=== PATIENT | female | born 1960 | race Caucasian/White ===

== ENCOUNTER → 2017-01-12 | Outpatient (CLI) | payer BC ==
[~2017-01-12] MED LIST: CIPR500T4; LAMO100T69; LAMO150T3; LEVO112T2; LISI-552; LISI20TA; MED FOR THYROID
--- NOTE | 2017-01-12 18:23 | Diagnostic Imaging Report ---
INDICATION: Chronic neck and back pain. FINDINGS: There is grade 1 spondylolisthesis of L4 anterior on L5. Body height is well maintained. There is narrowing of the disc space at L4-L5. Facets show no evidence of pars defects. There is sclerosis of the facets in the lower lumbar region. Pedicles are intact. SI joints are symmetrical with moderate sclerosis. IMPRESSION: 1. Grade 1 spondylolisthesis of L4 anterior on L5 with narrowing of the disc space. No evidence of pars defects. 2. These findings are essentially unchanged since 06/25/2015. Dictated by: Dictated on workstation # [id number]
--- NOTE | 2017-01-12 19:17 | Diagnostic Imaging Report ---
EXAMINATION: AP, lateral, and open-mouth views of the cervical spine. INDICATION: Neck pain. FINDINGS: There is straightening of the lordotic curvature. The vertebral body heights are preserved. There is mild disc height loss at the C5-6 and C6-7 levels. Anterior osteophytes are also noted at these levels. There are minimal posterior osteophytes also suggested at these levels. There is no widening of the predental space. Alignment at the lateral masses of C1 and C2 appears satisfactory. The prevertebral soft tissues appear unremarkable. IMPRESSION: Disc degenerative changes at C5-6 and C6-7 levels with suggestion of minimal posterior osteophytes. Dictated by: Dictated on workstation # [id number]
--- NOTE | 2017-01-12 19:21 | Diagnostic Imaging Report ---
AP and lateral views of the thoracic spine. INDICATION: Back pain. FINDINGS: The vertebral body heights are preserved. There is satisfactory alignment of the posterior spinal line. Multilevel disc height loss, disc desiccation and anterior osteophytes seen. The paravertebral soft tissues appear unremarkable. IMPRESSION: Disc degenerative changes. Dictated by: Dictated on workstation # [id number]
== END ==
LOC: RAD 15:43
PROVIDERS: ATTEND Family Medicine
DX: M54.2 Cervicalgia (principal); M54.5 Low back pain; M54.6 Pain in thoracic spine
CPT/HCPCS: 72040; 72072; 72100

== ENCOUNTER → 2017-01-19 | Outpatient (CLI) | payer BC ==
--- NOTE | 2017-01-19 15:37 | Diagnostic Imaging Report ---
PROCEDURE: MRI lumbar spine. TECHNIQUE: Multiplanar, multisequence MRI of the lumbar spine was performed without contrast. INDICATION: Back pain. FINDINGS: There is satisfactory alignment of the lumbar spine. The vertebral body heights are preserved. There is disc desiccation at L3/4 and L4/5 levels. At L4/5, there is moderate disc height loss. There is no suspicious lesion in the bone marrow identified. There is prominent lower lumbar spine facet arthropathy, particularly prominent at the L4/5 level and is worse on the left side with an effusion and posteriorly projecting synovial cysts. The cauda equina and conus medullaris appear grossly unremarkable. T11/12: There is a mild disc bulge with no spinal canal or foraminal stenosis. T12/L1: Minimal disc bulge is seen without spinal canal or foraminal stenosis. L1/2: There is no disc herniation. There is slight facet arthropathy. No central canal, lateral recess, or foraminal stenosis. The conus medullaris terminates at lower L1 level. L2/3: There is a mild disc bulge and xzbt-ce-mshtzubs facet arthropathy with no central canal or lateral recess stenosis. There is no foramina narrowing on either side. L3/4: There is a mild disc bulge and moderate facet arthropathy. No central canal stenosis. There is bilateral mild narrowing of the lateral recess. The foramina demonstrate bilateral mild stenosis. L4/5: There is a mild disc bulge with no significant central canal stenosis. There is xkhdordx-oy-qslqnh facet arthropathy bilaterally. There is bilateral lateral recess stenosis of mlqd-ic-jgifufnp degree bilaterally, more prominent on the right side abutting the descending L5 nerve roots. The foramina demonstrate mild narrowing bilaterally. L5/S1: There is no significant disc bulge. There is mild facet and ligamentous hypertrophy. No central canal, lateral recess, or foraminal stenosis seen. IMPRESSION: Lower lumbar spine prominent facet arthropathy, particularly at L4/5 level. There are also kqjl-uu-xvjjualc disc degenerative changes with no central canal stenosis at any level. Qfhw-ab-qocwkhua lateral recess stenosis is seen bilaterally at L4/5. Dictated by: Dictated on workstation # [id number]
== END ==
LOC: RAD 13:54
PROVIDERS: ATTEND Family Medicine
DX: M48.06 Spinal stenosis, lumbar region (principal)
CPT/HCPCS: 72148

== ENCOUNTER → 2017-03-17 | Outpatient (CLI) | payer BC ==
--- NOTE | 2017-03-17 18:52 | Diagnostic Imaging Report ---
Bilateral diagnostic mammogram. INDICATION: Followup medial right breast asymmetry and left breast pain. COMPARISON: 08/15/16 and other prior exams. The current study was also evaluated with a Computer Aided Detection (CAD) system. FINDINGS: The breasts are composed of heterogeneously dense parenchyma which may decrease mammographic sensitivity. The medial right breast asymmetry is not significantly changed from the previous studies. This is likely related to summation artifact of parenchyma. No definite associated correlating abnormality on the right MLO view. The left breast appears stable with particularly dense parenchyma in the upper outer aspect. IMPRESSION: No mammographic evidence of malignancy. Ultrasound evaluation of the area of pain in the left breast is pending. ACR BI-RADS Category 0: Incomplete. (Needs additional imaging evaluation). Result letter will be mailed to the patient. Note: At least 10% of breast cancer is not imaged by mammography. Dictated by: Dictated on workstation # [id number]
--- NOTE | 2017-03-17 18:54 | Diagnostic Imaging Report ---
EXAMINATION: Left breast ultrasound. INDICATION: Left breast pain. FINDINGS: The patient has pain in the upper outer quadrant of the left breast which was scanned with no underlying abnormality seen. IMPRESSION: Negative study. Clinical followup of area of pain is recommended. ACR BI-RADS Category 1: Negative. Result letter will be mailed to the patient. Note: At least 10% of breast cancer is not imaged by mammography. Dictated by: Dictated on workstation # [id number]
== END | disposition home or self-care (01) ==
LOC: RAD 08:15
PROVIDERS: ATTEND Family Medicine
DX: N64.89 Other specified disorders of breast (principal)
CPT/HCPCS: 76642; 77066

== ENCOUNTER 2017-03-24 15:15 | Outpatient (RCR) | payer BC | END 2017-03-24 16:18 | disposition home or self-care (01) | PROVIDERS: ATTEND Family Medicine | DX: M54.5 Low back pain (principal); I10 Essential (primary) hypertension; E03.9 Hypothyroidism, unspecified ==

== ENCOUNTER → 2017-04-05 | Outpatient (CLI) | payer BC ==
--- NOTE | 2017-04-05 18:10 | Diagnostic Imaging Report ---
Transabdominal and transvaginal pelvic ultrasound. INDICATION: Right pelvic pain. FINDINGS: The urinary bladder appears unremarkable. The uterus is 5.1 x 3.9 x 2.5 cm in size. There is a uterine fibroid anteriorly in the body of the uterus measuring 1.1 x 0.9 x 1.1 cm in size. Another fibroid is seen measuring 1.7 x 1.2 x 1 cm posteriorly with calcifications seen at the level of the body of the uterus. This appears to have a subserosal component bulging posteriorly. There is no fibroid identified on this exam projecting into the endometrium. There is a fundal fibroid with shadowing calcifications also suggested in the fundus measuring 1.1 x 0.7 x 1.2 cm. The endometrial stripe is 3 mm in caliber. There is a tiny amount of fluid seen in the lower uterine segment within the endometrial cavity. The right ovary is obscured by bowel gas. The left ovary demonstrates arterial and venous waveforms and is 2.2 x 1.4 x 2.1 cm. IMPRESSION: Uterine fibroids. The right ovary is not seen. Dictated by: Dictated on workstation # [id number]
== END ==
LOC: RAD 10:01
PROVIDERS: ATTEND Family Medicine
DX: D25.9 Leiomyoma of uterus, unspecified (principal)
CPT/HCPCS: 76830; 76856

== ENCOUNTER 2017-04-27 05:42 | Outpatient (CLI) | payer BC ==
[~2017-04-27] VITALS: Ht 165.1 cm; Wt 65.8 kg
[~2017-04-27 05:42] MED LIST changes: -LAMO150T3; +LAMO150T3 PO; -LISI-552; +LISI-552 PO
[2017-04-27] MEDS ORDERED: LEVO125T6 PO ×2 (12:41)
== END 2017-04-27 12:43 ==
LOC: PREOP 05:42
PROVIDERS: ATTEND Surgery
DX: Z01.818 Encounter for other preprocedural examination (principal); Z12.11 Encounter for screening for malignant neoplasm of colon

== ENCOUNTER 2017-05-01 07:19 | Day surgery (SDC) | payer BC ==
[~2017-05-01] VITALS: Ht 165.1 cm; Wt 65.8 kg
[~2017-05-01 07:19] MED LIST changes: +LEVO125T6 PO
[2017-05-01] MEDS: fentaNYL INJECTION 100 MCG/2 ML AMP IVP PRN ×3 (07:37→08:45)
[2017-05-01 07:39] VITALS: BP 123/72
[2017-05-01] MEDS ORDERED: NS IV 500 ML 500 ML IV PRN (07:45)
--- NOTE | 2017-05-01 08:11 | History & Physicial ---
History of Present Illness History of Present Illness Reason for visit/HPI to undergo screening colonoscopy. Previous history of polyps. Paternal uncle with colon cancer Date of Admission Date Seen by Provider: May 01, 2017 Time Seen by Provider: 08:09 I consulted on this patient on 05/01/17 08:09 Attending Physician Andrei Villaseñor MD Admitting Physician Jessica Benson DO Consult Allergies and Home Medications Allergies Coded Allergies: No Known Drug Allergies (Unverified , 02/09/10) Home Medications Lamotrigine 150 Mg Tablet, 150 MG PO BID, (Reported) Levothyroxine Sodium 125 Mcg Tablet, 125 MCG PO DAILY, (Reported) Lisinopril 20 Mg Tablet, 20 MG PO DAILY, (Reported) Past Gxyendt-Ddyggl-Pyjhoc Hx Patient Social History Marrital Status: Employed/Student: employed Alcohol Use: Rarely Uses Recreational Drug Use: No Smoking Status: Never a Smoker Recent Foreign Travel: No Contact w/other who traveled: No Recent Hopitalizations: No Recent Infectious Disease Expo: No Seasonal Allergies Seasonal Allergies: No Surgeries HX Surgeries: Yes Surgeries: Adenoidectomy, Appendectomy, Breast, Tonsillectomy Respiratory Hx Respiratory Disorders: No Cardiovascular Hx Cardiovascular Disorders: Yes (murmur heard at times) Cardiac Disorders: Heart Murmur, Hypertension Neurological Hx Neurological Disorders: Yes Neurological Disorders: Seizure Disorder Reproductive System Hx Reproductive Disorders: No Sexually Transmitted Disease: No Genitourinary Hx Genitourinary Disorders: No Gastrointestinal Hx Gastrointestinal Disorders: No Musculoskeletal Hx Musculoskeletal Disorders: Yes Musculoskeletal Disorders: Chronic Back Pain Endocrine Hx Endocrine Disorders: Yes Endocrine Disorders: Hypothyroidsim HEENT HX ENT Disorders: No Cancer Hx Cancer: No Psychosocial Hx Psychiatric Problems: No Integumentary HX Skin/Integumentary Disorder: No Blood Transfusions Hx Blood Disorders: No Constitutional: no symptoms reported EENTM: no symptoms reported Respiratory: no symptoms reported Cardiovascular: no symptoms reported Gastrointestinal: no symptoms reported Genitourinary: no symptoms reported Musculoskeletal: no symptoms reported Skin: no symptoms reported Psychiatric/Neurological: No Symptoms Reported Physical Exam Vital Signs Vital Sign - Last 12Hours 05/01/17 07:39 Temp 99.5 Pulse 86 Resp 16 B/P (MAP) 123/72 Pulse Ox 97 O2 Delivery Room Air Capillary Refill : General Appearance: No Apparent Distress HEENT: Normal ENT Inspection Neck: Normal Inspection Respiratory: Lungs Clear Cardiovascular: Regular Rate, Rhythm Gastrointestinal: Non Tender, Soft Rectal: Deferred Extremity: Normal Inspection Neurologic/Psychiatric: Alert, Oriented x3 Skin: Normal Color, Warm/Dry Assessment/Plan Assessment and Plan lady with a personal history of polyps. Family should colon cancer. Details of colonoscopy, polypectomy, iatrogenic complications of perforation and bleeding discussed. Seems to be in agreement to proceed. Problems: ANDREI VILLASEÑOR MD May 01, 2017 8:10 am
--- NOTE | 2017-05-01 08:11 | Conscious Sedation/ASA ---
Conscious Sedation Pre-Proced Time Reviewed: 08:11 ASA Class: 2 Airway Mallampati Classification: ([place] appropriate class) I. II. III, IV Lungs Heart ASA score ASA 1: a normal healthy patient ASA 2: a patient with a mild systemic disease (mid diabetes, controlled hypertension, obesity ASA 3: a patient with a severe systemic disease that limits activity (angina , COPD, prior Myocardial infarction) ASA 4: a patient with an incapacitating disease that is a constant threat to life (CHF, renal failure) ASA 5: a moribund patient not expected to survive 24 hrs. (ruptured aneurysm) ASA 6: a declared brain patient whose organs are being harvested. For emergent operations, add the letter E after the classification Grade 1 Sedation Plan: Discussed options with patient/fam Note The patient is an appropriate candidate to undergo the planned procedure, sedation, and anesthesia. The patient immediately re-assessed prior to indication. ANDREI GASPAR MD May 01, 2017 8:11 am
[2017-05-01] MEDS ORDERED: fentaNYL INJECTION 100 MCG/2 ML AMP ONE ×2 (08:22)
[2017-05-01] MEDS ORDERED: MIDAZOLAM 2 MG/2 ML (VERSED) VIAL ONE ×4 (08:22→08:31)
[2017-05-01] MEDS: MIDAZOLAM 2 MG/2 ML (VERSED) VIAL IVP PRN ×4 (08:35→08:47)
--- NOTE | 2017-05-01 08:59 | Endo Procedure Record ---
Endo Procedure Report Date of Procedure May 01, 2017 Surgeon (s) ANDREI GASPAR MD Post Procedure/Op Diagnosis normal colonoscopy Procedure Performed colonoscopy to cecum Description of Procedure Anesthesia Type: Conscious Sedation Specimen(s) collected/removed none Description of the Procedure INDICATION FOR PROCEDURE: This lady came in for screening colonoscopy. She has a personal history of a very small polyp at the cecum and the family history of colon cancer in her paternal uncle. Informed consent was obtained after reviewing the procedure and complications of iatrogenic perforation and post polypectomy bleeding. dESCRIPTION OF PROCEDURE: She was placed in left lateral decubitus position and her vital signs were monitored. Conscious sedation was achieved using Versed and fentanyl. Digital rectal examination was unremarkable. The colonoscope was then introduced in the rectum and advanced all the way up to the cecum. The scope was then withdrawn slowly and the mucosa examined in a systematic fashion. There was no abnormality. She tolerated the procedure well and was taken back to the nursing area in a stable condition Impression: Normal screening colonoscopy. Positive family history. Recommend repeating in 5 years. Copies To: MARIALUISA BOATENG XAVIER M MD May 01, 2017 8:59 am
--- NOTE | 2017-05-01 09:00 | Discharge Inst-Simple/Standard ---
Discharge Inst-Standard Discharge Medications New, Converted or Re-Newed RX: Other Patient Instructions/Follow Up Plan of Care/Instructions/FU: repeat colonoscopy in 5 years Activity as Tolerated: Yes Discharge Diet: No Restrictions ANDREI GASPAR MD May 01, 2017 8:59 am
[2017-05-01 09:20] VITALS: BP 108/72
[2017-05-01 09:50] VITALS: BP 111/73
[2017-05-01 10:15] VITALS: BP 115/70
== END 2017-05-01 10:15 | disposition home or self-care (01) ==
LOC: ENDO 07:19
PROVIDERS: ATTEND Surgery
DX: Z12.11 Encounter for screening for malignant neoplasm of colon (principal); Z86.010 Personal history of colon polyps; Z80.0 Family history of malignant neoplasm of digestive organs; I10 Essential (primary) hypertension; G40.909 Epilepsy, unspecified, not intractable, without status epilepticus; E03.9 Hypothyroidism, unspecified

== ENCOUNTER → 2017-05-30 | Outpatient (CLI) | payer BC ==
--- NOTE | 2017-05-30 17:35 | Diagnostic Imaging Report ---
EXAMINATION: Pelvis at 11:19 a.m. INDICATION: Hip pain. FINDINGS: A single AP view of the pelvis was obtained. There are no prior studies available for comparison. There is no fracture, dislocation, or acute bony abnormality evident. There is moderate degenerative disease involving the hip and sacroiliac joints. The soft tissues are unremarkable. IMPRESSION: 1. There is no evidence for an acute bony abnormality. 2. If clinical concern regarding an underlying abnormality persists and further imaging is desired, then MRI will be recommended. Dictated by: Dictated on workstation # [id number]
== END ==
LOC: RAD 10:47
PROVIDERS: ATTEND Internal Medicine Rheumatology
DX: M54.5 Low back pain (principal); M46.1 Sacroiliitis, not elsewhere classified
CPT/HCPCS: 72170

== ENCOUNTER → 2018-04-09 | Outpatient (CLI) | payer BC ==
--- NOTE | 2018-04-09 14:04 | Diagnostic Imaging Report ---
INDICATION: Routine screening. COMPARISON: 03/17/2017 and 02/24/2016. TECHNIQUE: 2D and 3D bilateral screening mammography was performed with CAD. FINDINGS: Both breasts remain heterogeneously dense, limiting the sensitivity of mammography. No dominant mass or malignant appearing microcalcifications are seen. The axillae are unremarkable. IMPRESSION: No mammographic features suspicious for malignancy are identified. ACR BI-RADS Category 1: Negative. Result letter will be mailed to the patient. Note: At least 10% of breast cancer is not imaged by mammography. Dictated by: Dictated on workstation # [id number]
== END ==
LOC: RAD 10:38
PROVIDERS: ATTEND Family Medicine
DX: Z12.31 Encounter for screening mammogram for malignant neoplasm of breast (principal)
CPT/HCPCS: 77067

== ENCOUNTER → 2018-08-06 | Outpatient (CLI) | payer BC ==
--- NOTE | 2018-08-06 17:10 | Diagnostic Imaging Report ---
PROCEDURE: US Non-ob pelvis comp/trans. TECHNIQUE: Multiple realtime grayscale images were obtained of the pelvis in various projections endovaginally. Transabdominal imaging was also performed. INDICATION: Uterine fibroids. COMPARISON: Comparison is made with prior pelvic ultrasound from 04/05/2017. FINDINGS: The uterus measures 5.0 x 3.4 x 2.4 cm. The endometrium is 2 mm in thickness. There is an anterior fibroid measuring 1.1 x 0.7 x 1.3 cm. Fundal fibroid measures 1.1 x 0.7 x 1.2 cm. Posterior fundal fibroid is 1.7 x 0.9 x 1.2 cm. Fibroids appear similar to prior. Right ovary measures 1.2 x 2.3 x 1.8 cm and the left ovary measures 1.3 x 2.0 x 1.7 cm. No adnexal mass or free fluid is seen. IMPRESSION: Uterine fibroids, similar in appearance to the examination from 04/05/2017. Dictated by: Dictated on workstation # [id number]
--- NOTE | 2018-08-06 17:55 | Diagnostic Imaging Report ---
PROCEDURE: US Thyroid. TECHNIQUE: Multiple real-time grayscale images were obtained of the thyroid in various projections. INDICATION: Hypothyroidism. FINDINGS: The right lobe of the thyroid measures 2.4 x 1.3 x 0.7 cm and the left lobe measures 1.9 x 1.0 x 1.1 cm. Both lobes are heterogeneous in echotexture. No discrete thyroid mass is detected. Isthmus is 2 mm in thickness. IMPRESSION: Small, heterogeneous thyroid. No discrete thyroid mass is detected. Dictated by: Dictated on workstation # [id number]
== END ==
LOC: RAD 13:46
PROVIDERS: ATTEND Family Medicine
DX: E03.9 Hypothyroidism, unspecified (principal); D25.9 Leiomyoma of uterus, unspecified
CPT/HCPCS: 76536; 76830; 76856

== ENCOUNTER 2018-08-14 13:30 | Outpatient (CLI) | payer BC ==
[~2018-08-14] VITALS: Ht 165.1 cm; Wt 65.8 kg
== END 2018-08-14 14:15 | disposition home or self-care (01) ==
LOC: PREOP 13:30
PROVIDERS: ATTEND Surgery
DX: Z01.818 Encounter for other preprocedural examination (principal)

== ENCOUNTER 2018-08-20 07:02 | Day surgery (SDC) | payer BC ==
[~2018-08-20] VITALS: Ht 165.1 cm; Wt 65.8 kg
[2018-08-20] MEDS ORDERED: NS IV 500 ML 500 ML IV PRN (07:16)
--- OUTSIDE RECORDS SUMMARY | 2018-08-20 07:19 | XMS REPORT | Clinical Summary ---
Author Author [facility] Organization [facility] Address Unknown Phone Unavailable Care Team Providers Care Reach Truck Operator Name Role Phone Self, Referral PCP Unavailable Source Comments Some departments are not documenting in the electronic medical record. If you do not see the information that you expected, contact Release of Information in the Health Information Management department at [phone] for further assistance in locating additional records.[facility] Allergies Not on File Current Medications Not on file Active Problems Not on file Social History Tobacco Use Types Packs/Day Years Used Date Never Assessed Sex Assigned at Date Recorded Not on file Last Filed Vital Signs Not on file Plan of Treatment Health Maintenance Due Date Last Done Comments HEPATITIS C SCREENING 1962 PHYSICAL (COMPREHENSIVE) 1969 EXAM PERTUSSIS VACCINE 1973 HIV SCREENING 1977 TETANUS VACCINE 12/26/1979 CERVICAL CANCER SCREENING 1992 BREAST CANCER SCREENING 2002 COLORECTAL CANCER 2012 SCREENING SHINGLES RECOMBINANT 2012 VACCINE (1 of 2) INFLUENZA VACCINE 05/09/2018 Results Not on filefrom Last 3 Months
--- OUTSIDE RECORDS SUMMARY | 2018-08-20 07:20 | XMS REPORT | Continuity of Care Document ---
Demographics x Preferred Language Unknown Marital Status Unknown Rastafari Affiliation Unknown Race Unknown Ethnic Group Unknown Author Author [facility] Organization [facility] Address Unknown Phone Unavailable Allergies Active Description Code Type Severity Reaction Onset Reported/Identified Relationship to Patient Clinical Status Yes No known drug allergies [id number] ND N/A N/A Confirmed or Verified Yes No Known Drug Allergies [id number] Drug Allergy Mild N/A 05/01/2017 Medications There is no data. Problems Date Dx Coded Attending Type Code Diagnosis Diagnosed By 08/06/2011 Ot 345.90 EPILEPSY UNSPEC W/O MENTION INTRACTABLE 08/06/2011 Ot V58.69 OTH MED,LT, CURRENT USE 08/26/2014 Ot V76.12 08/26/2014 Ot V76.12 08/26/2014 Ot 433.10 08/26/2014 Ot 780.50 08/26/2014 Ot 228.09 08/26/2014 Ot 789.01 08/26/2014 Ot V76.12 08/26/2014 Ot V76.12 08/26/2014 OPHELIA BOATENG DOLINE S Ot V76.12 02/05/2015 Ot V76.12 02/05/2015 Ot 433.10 02/05/2015 Ot 780.50 02/05/2015 Ot 228.09 02/05/2015 Ot 789.01 02/05/2015 Ot V76.12 02/05/2015 Ot V76.12 02/05/2015 OPHELIA BOATENG DOLINE S Ot V76.12 02/05/2015 CELESTINENDSURINDER DOGALAJESSICA S Ot 789.01 02/06/2015 CELESTINENDSURINDER DOGALAJESSICA S Ot 789.01 02/08/2015 GALA BOATENG DOQUELINE S Ot 789.00 02/10/2015 GALA BOATENG DOQUELINE S Ot 789.00 02/10/2015 AGNIESZKA FRANCO RESEARCH DIRECTOR Ot V76.12 03/07/2015 OPHELIA BOATENG DOLINE S Ot 789.00 03/07/2015 AGNIESZKA FRANCO RESEARCH DIRECTOR Ot V76.12 03/27/2015 ORENDER DO, JESSICA S Ot 789.01 06/23/2015 CABRERA TORREZ ECDIS N NAVIGATION OPERATOR Ot 244.9 HYPOTHYROIDISM NOS 06/23/2015 CABRERA TORREZ ECDIS N NAVIGATION OPERATOR Ot 345.90 EPILEPSY UNSPEC W/O MENTION INTRACTABLE 06/23/2015 CABRERA TORREZ ECDIS N NAVIGATION OPERATOR Ot 401.9 HYPERTENSION NOS 06/23/2015 CABRERA TORREZ ECDIS N NAVIGATION OPERATOR Ot 728.87 MUSCLE WEAKNESS (GENERALIZED) 06/23/2015 CABRERA TORREZ ECDIS N NAVIGATION OPERATOR Ot 782.0 SKIN SENSATION DISTURB 06/23/2015 CABRERA TORREZ ECDIS N NAVIGATION OPERATOR Ot V58.69 OTH MED,LT,CURRENT USE 07/08/2015 ORENDER DO, JESSICA S Ot 721.0 07/08/2015 ORENDER DO, JESSICA S Ot 721.2 07/08/2015 ORENDER DO, JESSICA S Ot 721.3 07/10/2015 ORENDER DO, JESSICA S Ot 218.9 11/20/2015 Ot 433.10 11/20/2015 Ot 780.50 11/20/2015 Ot 228.09 11/20/2015 Ot 789.01 11/20/2015 Ot V76.12 11/20/2015 Ot V76.12 11/20/2015 ORENDER DO, JESSICA S Ot V76.12 11/20/2015 ORENDER DO, JESSICA S Ot 789.01 11/20/2015 ORENDER DO, JESSICA S Ot 789.00 11/20/2015 AGNIESZKA FRANCO Ot V76.12 11/20/2015 ORENDER DO, JESSICA S Ot 721.0 11/20/2015 ORENDER DO, JESSICA S Ot 721.2 11/20/2015 ORENDER DO, JESSICA S Ot 721.3 11/20/2015 ORENDER DO, JESSICA S Ot 218.9 02/25/2016 ORENDER DO, JESSICA S Ot N64.89 OTHER SPECIFIED DISORDERS OF BREAST 02/25/2016 ORENDER DO, JESSICA S Ot Z12.31 ENCNTR SCREEN MAMMOGRAM FOR MALIGNANT NE 02/25/2016 ORENDER DO, JESSICA S Ot N64.89 OTHER SPECIFIED DISORDERS OF BREAST 02/25/2016 CELESTINENDER , JESSICA S Ot Z12.31 ENCNTR SCREEN MAMMOGRAM FOR MALIGNANT NE 03/01/2016 CELESTINENDSURINDER BEARDEN, JESSICA S Ot N64.59 OTHER SIGNS AND SYMPTOMS IN BREAST 03/09/2016 CELESTINENDER , JESSICA S Ot N64.89 OTHER SPECIFIED DISORDERS OF BREAST 03/09/2016 CELESTINENDER , JESSICA S Ot Z12.31 ENCNTR SCREEN MAMMOGRAM FOR MALIGNANT NE 03/18/2016 CELESTINENDER , JESSICA S Ot N64.59 OTHER SIGNS AND SYMPTOMS IN BREAST 08/15/2016 Ot 228.09 HEMANGIOMA NEC 08/15/2016 Ot 789.01 ABDOMINAL PAIN, RIGHT UPPER QUADRANT 08/15/2016 Ot V76.12 OTH SCREEN MAMMO-MALIGN NEOPLASM OF [place]EN 08/15/2016 Ot V76.12 OTH SCREEN MAMMO-MALIGN NEOPLASM OF [place] 08/15/2016 CELESTINENDOPHELIA CADENA DOLINE S Ot V76.12 OTH SCREEN MAMMO-MALIGN NEOPLASM OF [place] 08/15/2016 CELESTINENDER , JESSICA S Ot 789.01 ABDOMINAL PAIN, RIGHT UPPER QUADRANT 08/15/2016 CELESTINENDER , JESSICA S Ot 789.00 ABDOMINAL PAIN, UNSPECIFIED SITE 08/15/2016 AGNIESZKA FRANCO Ot V76.12 OTH SCREEN MAMMO-MALIGN NEOPLASM OF [place] 08/15/2016 CELESTINENDSURINDER BEARDEN, JESSICA S Ot 721.0 CERVICAL SPONDYLOSIS 08/15/2016 KILO BEARDEN, JESSICA S Ot 721.2 THORACIC SPONDYLOSIS 08/15/2016 CELESTINENDER , JESSICA S Ot 721.3 LUMBOSACRAL SPONDYLOSIS 08/15/2016 CELESTINENDER , JESSICA S Ot 218.9 UTERINE LEIOMYOMA NOS 08/15/2016 MARCELLER , JESSICA S Ot N64.89 OTHER SPECIFIED DISORDERS OF BREAST 08/15/2016 CELESTINENDSURINDER BEARDEN, JESSICA S Ot Z12.31 ENCNTR SCREEN MAMMOGRAM FOR MALIGNANT NE 08/15/2016 CELESTINENDSURINDER BEARDEN, JESSICA S Ot N64.59 OTHER SIGNS AND SYMPTOMS IN BREAST 08/16/2016 CELESTINENDSURINDER BEARDEN, JESSICA S Ot R92.8 OTH ABN AND INCONCLUSIVE FINDINGS ON DX 08/26/2016 ORENDER DO, JESSICA S Ot R92.8 OTH ABN AND INCONCLUSIVE FINDINGS ON DX 02/10/2017 ORENDER DO, JESSICA S Ot E03.9 HYPOTHYROIDISM, UNSPECIFIED 02/10/2017 ORENDER DO, JESSICA S Ot I10 ESSENTIAL (PRIMARY) HYPERTENSION 02/10/2017 ORENDER DO, JESSICA S Ot M54.5 LOW BACK PAIN 02/14/2017 ORENDER DO, JESSICA S Ot E03.9 HYPOTHYROIDISM, UNSPECIFIED 02/14/2017 ORENDER DO, JESSICA S Ot I10 ESSENTIAL (PRIMARY) HYPERTENSION 02/14/2017 ORENDER DO, JESSICA S Ot M54.5 LOW BACK PAIN 02/15/2017 ORENDER DO, JESSICA S Ot M54.2 CERVICALGIA 02/15/2017 ORENDER DO, JESSICA S Ot M54.5 LOW BACK PAIN 02/15/2017 ORENDER DO, JESSICA S Ot M54.6 PAIN IN THORACIC SPINE 02/15/2017 ORENDER DO, JESSICA S Ot M48.06 SPINAL STENOSIS, LUMBAR REGION 03/19/2017 ORENDER DO, JESSICA S Ot N64.89 OTHER SPECIFIED DISORDERS OF BREAST 03/22/2017 ORENDER DO, JESSICA S Ot E03.9 HYPOTHYROIDISM, UNSPECIFIED 03/22/2017 ORENDER DO, JESSICA S Ot I10 ESSENTIAL (PRIMARY) HYPERTENSION 03/22/2017 ORENDER DO, JESSICA S Ot M54.5 LOW BACK PAIN 03/30/2017 ORENDER DO, JESSICA S Ot N64.89 OTHER SPECIFIED DISORDERS OF BREAST 04/06/2017 ORENDER DO, JESSICA S Ot D25.9 LEIOMYOMA OF UTERUS, UNSPECIFIED 04/21/2017 ORENDER DO, JESSICA S Ot D25.9 LEIOMYOMA OF UTERUS, UNSPECIFIED 04/28/2017 HUBERT CARIAS, ANDREI [place] Ot Z01.818 ENCOUNTER FOR OTHER PREPROCEDURAL EXAMIN 04/28/2017 HUBERT CARIAS, ANDREI [place] Ot Z12.11 ENCOUNTER FOR SCREENING FOR MALIGNANT NE 05/01/2017 HUBERT CARIAS, ANDREI [place] Ot E03.9 HYPOTHYROIDISM, UNSPECIFIED 05/01/2017 ANDREI GASPAR MD Ot G40.909 EPILEPSY, UNSP, NOT INTRACTABLE, WITHOUT 05/01/2017 ANDREI GASPAR MD Ot I10 ESSENTIAL (PRIMARY) HYPERTENSION 05/01/2017 ANDREI GASPAR MD Ot Z12.11 ENCOUNTER FOR SCREENING FOR MALIGNANT NE 05/01/2017 ANDREI GASPAR MD Ot Z80.0 FAMILY HISTORY OF MALIGNANT NEOPLASM OF 05/01/2017 ANDREI GASPAR MD Ot Z86.010 PERSONAL HISTORY OF COLONIC POLYPS 05/02/2017 ANDREI GASPAR MD Ot E03.9 HYPOTHYROIDISM, UNSPECIFIED 05/02/2017 ANDREI GASPAR MD Ot G40.909 EPILEPSY, UNSP, NOT INTRACTABLE, WITHOUT 05/02/2017 ANDREI GASPAR MD Ot I10 ESSENTIAL (PRIMARY) HYPERTENSION 05/02/2017 ANDREI GASPAR MD Ot Z12.11 ENCOUNTER FOR SCREENING FOR MALIGNANT NE 05/02/2017 ANDREI GASPAR MD Ot Z80.0 FAMILY HISTORY OF MALIGNANT NEOPLASM OF 05/02/2017 ANDREI GASPAR MD Ot Z86.010 PERSONAL HISTORY OF COLONIC POLYPS 05/31/2017 MATTEO DONOHUE MD Ot M46.1 SACROILIITIS, NOT ELSEWHERE CLASSIFIED 05/31/2017 MATTEO DONOHUE MD Ot M54.5 LOW BACK PAIN 06/13/2017 MATTEO DONOHUE MD Ot M46.1 SACROILIITIS, NOT ELSEWHERE CLASSIFIED 06/13/2017 MATTEO DONOHUE MD Ot M54.5 LOW BACK PAIN 04/10/2018 OPHELIA BOATENG DOLINE S Ot Z12.31 ENCNTR SCREEN MAMMOGRAM FOR MALIGNANT NE 04/15/2018 CELESTINENDSURINDER DOGALAJESSICA S Ot Z12.31 ENCNTR SCREEN MAMMOGRAM FOR MALIGNANT NE 04/25/2018 CELESTINENDER DOGALAJESSICA S Ot Z12.31 ENCNTR SCREEN MAMMOGRAM FOR MALIGNANT NE 08/08/2018 OPHELIA BOATENG DOLINE S Ot D25.9 LEIOMYOMA OF UTERUS, UNSPECIFIED 08/08/2018 OPHELIA BOATENG DOLINE S Ot E03.9 HYPOTHYROIDISM, UNSPECIFIED 08/14/2018 ANDRIE GASPAR MD Ot Z01.818 ENCOUNTER FOR OTHER PREPROCEDURAL EXAMIN 08/15/2018 HUBERT CARIAS, ANDREI [place] Z01.818 ENCOUNTER FOR OTHER PREPROCEDURAL EXAMIN Procedures There is no data. Results Test Result Range UA - 06/21/15 00:00 PH 5.5 4.5-8.0 SG 1.005 UABILI NEGATIVE UABLD NEGATIVE UACOLOR YEL UAGLU NEGATIVE UAKET NEGATIVE UALEUK TRACE UANIT NEGATIVE UAURO 0.2 0-0.2 CLARITY CL PROTEIN NEGATIVE UA WBC R05 UA RBC R05 SQUAMOUS EPITHELIAL CELLS FEW CBC WITH DIFF - 06/21/15 00:00 BASO% 0.8 % 0-2 EOS% 1.3 % 0-7.0 HCT 39.4 % 36.9-47.0 HGB 13.2 G/DL 12.0-16.0 LYMPH% 32.3 % 20-40 MCH 31.4 PG 27-31 MCHC 33.5 G/DL 33-37 MCV 93.6 FL 81-99 MONO% 4.8 % 0-10.0 MPV 9.1 FL 7.3-10.4 NEUTRO% 60.6 % 40-70 PLT 321 10^3u 130-400 RBC 4.2 10^6u 4.2-5.4 RDW 12.9 % 11.5-15.5 WBC 6.3 10^3u 4.8-10.8 NEUTRO# 3.8 10^3u 1.5-7.5 LYMPH# 2.0 10^3u 0.9-4.0 MONO# 0.3 10^3u 0-0.8 EOS# 0.1 10^3u 0-0.6 BASO# 0.1 10^3u 0-0.1 IMM GRANULOCYTE % 0.2 % IMM GRANULOCYTE # 0.0 10^3u 0-5 FREE T4 - 06/21/15 00:00 FT4 1.06 NG/DL 0.78-1.34 TSH - 06/21/15 00:00 TSH 5.44 UIUML 0.36-3.74 CMP - 06/21/15 00:00 ALB 4.0 G/DL 3.5-5 ALP 74 IU/L 25-72 ALT 26 IU/L 12-65 AST 21 IU/L 10-42 BCR 13.3 10-20 BUN 13 MG/DL 7-18 CA 8.9 MG/DL 8.4-10.2 CL 103 MEQ/L 98-107 CO2 29.8 MEQ/L 22-28 CREA 0.98 MG/DL 0.6-1.0 EGFR 60 eGFR >=60 GLU 95 MG/DL 70-105 K 4.2 MEQ/L 3.5-5.1 NA 141 MEQ/L 134-145 OSMSC 281.2 MOSML 280-300 TBIL 0.2 MG/DL 0.1-1.0 TP 7.1 G/DL 6.0-8.3 Albumin/Globulin Ratio 1.3 0-8 Anion Gap 8.2 8-16 LAMO - 06/21/15 00:00 LAMO 5.3 mcg/m 4.0-18.0 Encounters ACCT No. Visit Date/Time Discharge Status Pt. Type Provider Facility Loc./Unit Complaint [id number] 06/21/2015 17:44:00 06/22/2015 16:44:00 DIS Inpatient ROSA M SOTO [facility] OBS [id number] 09/07/2014 00:00:00 Document Registration [id number] 08/14/2018 13:30:00 08/14/2018 14:15:00 DIS Outpatient ANDREI GASPAR MD [facility] PREOP EGD [id number] 08/06/2018 13:46:00 08/06/2018 23:59:59 CLS Outpatient JESSICA BOATENG DO [facility] RAD HYPOTHYROIDISM, UTERINE FIBROID [id number] 04/09/2018 10:38:00 04/09/2018 23:59:59 CLS Outpatient JESSICA BOATENG DO S [facility] RAD SCREENING [id number] 05/30/2017 10:47:00 05/30/2017 23:59:59 CLS Outpatient MATTEO DONOHUE MD [facility] RAD M54.5 [id number] 05/01/2017 07:19:00 05/01/2017 10:15:00 DIS Outpatient ANDREI GASPAR MD [facility] ENDO SCREENING [id number] 04/27/2017 05:42:00 04/27/2017 12:43:00 DIS Outpatient HUBERT CARIAS, ANDREI [place] [facility] PREOP SCREENING COLONOSCOPY [id number] 04/05/2017 10:01:00 04/05/2017 23:59:59 CLS Outpatient CELESTINENDER DO JESSICA S [facility] RAD R ADNEXAL PAIN/ ENLARGEMENT [id number] 03/24/2017 15:15:00 03/24/2017 16:18:00 DIS Outpatient CELESTINENDSURINDER BEARDEN JESSICA S [facility] REHAB LUMBAR DEGENERATIVE DISC DISEASE [id number] 03/17/2017 08:15:00 03/17/2017 23:59:59 CLS Outpatient CELESTINENDSURINDER BEARDEN JESSICA S [facility] RAD RT BREAST ASYMMETRY [id number] 01/19/2017 13:54:00 01/19/2017 23:59:59 CLS Outpatient KILO BEARDEN JESSICA S [facility] RAD DDD,L LEG RADICULOPATHY [id number] 01/12/2017 15:43:00 01/12/2017 23:59:59 CLS Outpatient CELESTINENDSURINDER BEARDEN JESSICA S [facility] RAD CERIVAL THORACIC LUMBAR PAIN [id number] 08/15/2016 12:40:00 08/15/2016 23:59:59 CLS Outpatient CELESTINENDER DO JESSICA S [facility] RAD RT BREAST ASYMMETRY [id number] 02/29/2016 08:04:00 02/29/2016 23:59:59 CLS Outpatient CELESTINENDER DO JESSICA S [facility] RAD R BREAST DENSITY, ASYMMETRY [id number] 02/24/2016 10:39:00 02/24/2016 23:59:59 CLS Outpatient CELESTINENDSURINDER BEARDEN JESSICA S [facility] RAD SCREENING [id number] 07/02/2015 11:48:00 07/02/2015 23:59:59 CLS Outpatient ORENDER DO JESSICA S [facility] RAD PELVIC PAIN [id number] 06/25/2015 10:02:00 06/25/2015 23:59:59 CLS Outpatient ORENDER DO, JESSICA S [facility] RAD NECK PAIN, BACK PAIN [id number] 06/23/2015 11:38:00 06/23/2015 14:02:00 DIS Emergency CABRERA TORREZ Andrews [place] [facility] ER RIGHT SIDE WEAKNESS [id number] 02/05/2015 11:55:00 02/05/2015 23:59:59 CLS Outpatient ORENDER DO, JESSICA S [facility] CARD ABDOMINAL PAIN [id number] 02/05/2015 09:38:00 02/05/2015 23:59:59 CLS Outpatient VANAGNIESZKA LIN RESEARCH DIRECTOR [facility] RAD SCREENING [id number] 01/29/2015 08:30:00 01/29/2015 23:59:59 CLS Outpatient ORENDER DO, JESSICA S [facility] RAD UPPER QUADRANT PAIN [id number] 08/13/2013 09:00:00 08/13/2013 23:59:59 CLS Outpatient ORENDER DO, JESSICA S [facility] RAD ROUTINE [id number] 08/20/2018 07:02:00 ACT Outpatient HUBERT CARIAS, ANDREI [place] [facility] ENDO GERD [id number] 08/26/2014 10:01:00 Document Registration [id number] 07/16/2012 10:03:00 Document Registration [id number] 08/06/2011 04:45:00 Document Registration [id number] 06/23/2011 08:55:00 Document Registration [id number] 06/08/2011 09:25:00 Document Registration [id number] 08/06/2010 19:49:00 Document Registration [id number] 06/29/2010 13:09:00 Document Registration [id number] 05/13/2010 10:58:00 Document Registration [id number] 05/07/2009 08:52:00 Document Registration 11/201707/19/2018 09:36:54 07/19/2018 23:59:59 CLS Outpatient CelestinenderGalaJessica S.
[2018-08-20] MEDS ORDERED: NS IV 500 ML 500 ML ONE (07:26)
[2018-08-20] MEDS ORDERED: MIDAZOLAM 2 MG/2 ML (VERSED) VIAL IVP ONE (07:30)
[2018-08-20] MEDS ORDERED: fentaNYL INJECTION 100 MCG/2 ML AMP IVP ONE (07:30)
[2018-08-20] MEDS ORDERED: HURRICAINE EXT TUBE (BENZOCAINE) XX PRN (07:30)
[2018-08-20 07:38] VITALS: BP 123/45
[2018-08-20] MEDS ORDERED: fentaNYL INJECTION 100 MCG/2 ML AMP ONE (07:54)
[2018-08-20] MEDS ORDERED: MIDAZOLAM 2 MG/2 ML (VERSED) VIAL ONE ×3 (07:54)
[2018-08-20] MEDS ORDERED: HURRICAINE EXT TUBE (BENZOCAINE) ONE (07:54)
--- NOTE | 2018-08-20 08:02 | History & Physicial ---
History of Present Illness History of Present Illness Reason for visit/HPI epigastric pain and heartburn with heme-positive stools. Previous negative colonoscopy and therefore upper endoscopy is reasonable Date of Admission 08/20/18 Date Seen by a Provider: Aug 20, 2018 Time Seen by a Provider: 08:00 I consulted on this patient on 08/20/18 07:59 Attending Physician Andrei Villaseñor MD Admitting Physician Jessica Benson DO Consult Allergies and Home Medications Allergies Coded Allergies: No Known Drug Allergies (Verified , 05/01/17) Home Medications Lamotrigine 150 Mg Tablet, 150 MG PO BID, (Reported) Levothyroxine Sodium 125 Mcg Tablet, 125 MCG PO DAILY, (Reported) Lisinopril 20 Mg Tablet, 20 MG PO DAILY, (Reported) Patient Home Medication List Home Medication List Reviewed: Yes Past Zweobtk-Imqtff-Iikdvq Hx Patient Social History Marrital Status: Employed/Student: employed Recent Foreign Travel: No Contact w/other who traveled: No Recent Hopitalizations: No Recent Infectious Disease Expo: No Immunizations Up To Date Date of Influenza Vaccine: Jul 09, 2018 Seasonal Allergies Seasonal Allergies: No Surgeries Yes Adenoidectomy, Appendectomy, Breast, Tonsillectomy Respiratory No Cardiovascular Yes Heart Murmur, Hypertension Neurological Seizure Disorder Reproductive System Hx Reproductive Disorders: No Sexually Transmitted Disease: No Gastrointestinal Gastroesophageal Reflux Musculoskeletal Chronic Back Pain Endocrine Endocrine Disorders: Hypothyroidsim Review of Systems Constitutional: no symptoms reported EENTM: no symptoms reported Respiratory: no symptoms reported Cardiovascular: no symptoms reported Gastrointestinal: see HPI Musculoskeletal: no symptoms reported Skin: no symptoms reported Psychiatric/Neurological: No Symptoms Reported Physical Exam Vital Signs Vital Signs - First Documented 08/20/18 07:38 Temp 98.1 Pulse 75 Resp 18 B/P (MAP) 123/45 (71) Pulse Ox 95 O2 Delivery Room Air Capillary Refill : Height, Weight, BMI Height: 5'5.00" Weight: 145lbs. 0.0oz. 65.110185hn; 24.1 BMI Method:Stated General Appearance: Anxious Neck: Normal Inspection Respiratory: Lungs Clear Cardiovascular: Regular Rate, Rhythm Gastrointestinal: Non Tender, Soft Extremity: Normal Inspection Neurologic/Psychiatric: Alert, Oriented x3 Skin: Warm/Dry Assessment/Plan Assessment and Plan lady with symptoms of gastroesophageal reflux disease. Heme-positive stools. Esophagitis versus peptic ulcers. For upper endoscopy with antral biopsy for H. pylori Admission Diagnosis Admission Status: Other (Outpt Proc) ANDREI VILLASEÑOR MD Aug 20, 2018 08:02
--- NOTE | 2018-08-20 08:02 | Conscious Sedation/ASA ---
Conscious Sedation Pre-Proced Time 08:02 ASA Score 2 For ASA 3 and 4: Consider anesthesia and medical clearance. Also, for patients with a history of failed moderate sedation consider anesthesia. Airway Lungs Heart ASA score ASA 1: a normal healthy patient ASA 2: a patient with a mild systemic disease (mid diabetes, controlled hypertension, obesity ASA 3: a patient with a severe systemic disease that limits activity (angina , COPD, prior Myocardial infarction) ASA 4: a patient with an incapacitating disease that is a constant threat to life (CHF, renal failure) ASA 5: a moribund patient not expected to survive 24 hrs. (ruptured aneurysm) ASA 6: a declared brain patient whose organs are being harvested. For emergent operations, add the letter E after the classification Mallampati Classification Grade 1 Sedation Plan Discussed options with patient/fam The patient is an appropriate candidate to undergo the planned procedure, sedation, and anesthesia. The patient immediately re-assessed prior to indication. ANDREI GASPAR MD Aug 20, 2018 08:02
--- NOTE | 2018-08-20 08:09 | Endo Procedure Record ---
Endo Procedure Report Date of Procedure Last Colonoscopy: Yes (unsure) Aug 20, 2018 Surgeon (s) ANDREI GASPAR MD Post Procedure/Op Diagnosis hiatal hernia with grade 2 esophagitis 2 mm gastric ulcer along the greater curvature Duodenal erosions Procedure Performed EGD with biopsy of gastric ulcer Description of Procedure Anesthesia Type: Conscious Sedation Specimen(s) collected/removed tissue from gastric ulcers Description of the Procedure Indication for the procedure: This lady came in for an upper endoscopy to evaluate symptoms of gastroesophageal reflux and on the basis of heme-positive stools. Previous colonoscopy was negative. Informed consent was obtained after reviewing the procedure in detail. Description of procedure: She was placed in left lateral decubitus position and her vital signs were monitored. Conscious sedation was achieved using Versed and fentanyl. The flexible gastroscope was introduced down the esophagus, past the stomach, into the proximal duodenum. Findings: Esophagus: Hiatal hernia with grade 2 esophagitis. The changes of esophagitis extended proximally up to about 35 cm from the incisor teeth. Stomach: 2 mm acute ulcer along the greater curvature. Photodocumentation and biopsy for H. pylori were obtained. Duodenum: Changes of duodenitis were found along the first part. There was no jac ulceration. She tolerated the procedure well and was taken back to the nursing area in a stable condition. Impression: Symptoms of gastroesophageal reflux. Grade 2 esophagitis. Gastric ulcer and duodenal erosions. Helicobacter status pending. Copy Copies To 1: MARIALUISA BOATENG XAVIER M MD Aug 20, 2018 08:09
--- NOTE | 2018-08-20 08:15 | Discharge Inst-Simple/Standard ---
Discharge Inst-Standard Discharge Medications New, Converted or Re-Newed RX: Other Patient Instructions/Follow Up Plan of Care/Instructions/FU: please call for Protonix 40 mg daily to her pharmacy ; 30 day supply with 5 refills. To avoid nonsteroidals. Follow-up with Dr. Benson Activity as Tolerated: Yes Discharge Diet: No Restrictions ANDREI GASPAR MD Aug 20, 2018 08:15
[2018-08-20 08:35] VITALS: BP 102/58
[2018-08-20 09:05] VITALS: BP 132/63
[2018-08-20 09:35] VITALS: BP 132/63
== END 2018-08-20 09:35 | disposition home or self-care (01) ==
LOC: ENDO 07:02
PROVIDERS: ATTEND Surgery
DX: K20.9 Esophagitis, unspecified (principal); K44.9 Diaphragmatic hernia without obstruction or gangrene; K25.9 Gastric ulcer, unspecified as acute or chronic, without hemorrhage or perforation; K26.9 Duodenal ulcer, unspecified as acute or chronic, without hemorrhage or perforation; I10 Essential (primary) hypertension; R19.5 Other fecal abnormalities

== ENCOUNTER → 2019-04-18 | Outpatient (CLI) | payer BC ==
--- NOTE | 2019-04-19 13:55 | Diagnostic Imaging Report ---
Indication: Routine screening. Comparison is made with prior mammogram from 04/09/2018 and 03/17/2017. 2-D and 3-D bilateral screening mammography was performed with CAD. Both breasts are heterogeneously dense, limiting the sensitivity of mammography. The parenchymal pattern appears to be stable. No mass or malignant-appearing microcalcifications are seen. The axillae are unremarkable. Impression: BI-RADS category 1 No mammographic features suspicious for malignancy are identified. ACR BI-RADS Category 1: Negative. Result letter will be mailed to the patient. Note: At least 10% of breast cancer is not imaged by mammography. Dictated by: Dictated on workstation # [id number]
== END ==
LOC: RAD 15:50
PROVIDERS: ATTEND Family Medicine
DX: Z12.31 Encounter for screening mammogram for malignant neoplasm of breast (principal)
CPT/HCPCS: 77067

== ENCOUNTER → 2020-04-20 | Outpatient (CLI) | payer BC ==
--- NOTE | 2020-04-20 11:13 | Diagnostic Imaging Report ---
INDICATION: Routine screening. Comparison is made with prior mammogram 04/18/2019 and 04/09/2018. 2-D and 3-D bilateral screening mammography was performed with CAD. Both breasts are heterogeneously dense, limiting the sensitivity of mammography. The parenchymal pattern appears stable. No dominant mass or malignant appearing microcalcifications are seen. Axillae are unremarkable. IMPRESSION: BI-RADS Category 1 No mammographic features suspicious for malignancy are identified. ACR BI-RADS Category 1: Negative. Result letter will be mailed to the patient. Note: At least 10% of breast cancer is not imaged by mammography. Dictated by: Dictated on workstation # [id number]
== END ==
LOC: RAD 10:05
PROVIDERS: ATTEND Family Medicine
DX: Z12.31 Encounter for screening mammogram for malignant neoplasm of breast (principal)
CPT/HCPCS: 77063; 77067

== ENCOUNTER → 2021-05-07 | Outpatient (CLI) | payer BC ==
[~2021-05-07] MED LIST changes: -CIPR500T4; +CIPR500T5; -LISI-552 PO; +LISI20TA26 PO
--- NOTE | 2021-05-07 12:08 | Diagnostic Imaging Report ---
Indication: Routine screening. Comparison is made with prior mammogram from 04/20/2020 and 04/18/2019. 2-D and 3-D bilateral screening mammography was performed with CAD. Both breasts are heterogeneously dense, limiting the sensitivity of mammography. No mass or malignant-appearing microcalcifications are seen. Axillae are unremarkable. IMPRESSION: BI-RADS Category 1 No mammographic features suspicious for malignancy are identified. ACR BI-RADS Category 1: Negative. Result letter will be mailed to the patient. Note: At least 10% of breast cancer is not imaged by mammography. Dictated by: Dictated on workstation # [id number]
== END ==
LOC: RAD 09:30
PROVIDERS: ATTEND Family Medicine
DX: Z12.31 Encounter for screening mammogram for malignant neoplasm of breast (principal)
CPT/HCPCS: 77063; 77067

== ENCOUNTER → 2022-05-09 | Outpatient (CLI) | payer BC ==
--- NOTE | 2022-05-09 14:04 | Diagnostic Imaging Report ---
Indication: Routine screening. Comparison is made with prior mammogram 05/07/2021 and 04/20/2020. 2-D and 3-D bilateral screening mammography was performed with CAD. CAD is utilized. The current study was also evaluated with a Computer Aided Detection (CAD) system. Both breasts remain heterogeneously dense, limiting the sensitivity of mammography. The parenchymal pattern is stable. No mass or malignant-appearing microcalcifications are seen. Axillae are unremarkable. IMPRESSION: BI-RADS Category 1 No mammographic features suspicious for malignancy are identified. ACR BI-RADS Category 1: Negative. Result letter will be mailed to the patient. Note: At least 10% of breast cancer is not imaged by mammography. Dictated by: Dictated on workstation # [id number]
== END ==
LOC: RAD 08:30
PROVIDERS: ATTEND Family Medicine
DX: Z12.31 Encounter for screening mammogram for malignant neoplasm of breast (principal)
CPT/HCPCS: 77063; 77067

== ENCOUNTER → 2023-08-07 | Outpatient (CLI) | payer BC ==
--- NOTE | 2023-08-07 15:05 | Diagnostic Imaging Report ---
INDICATION: Routine screening. COMPARISON: 05/09/2022 and 05/07/2021. TECHNIQUE: 2D and 3D bilateral screening mammography was performed with CAD. FINDINGS: Both breasts are heterogeneously dense, limiting the sensitivity of mammography. The parenchymal pattern is stable. No mass or malignant-appearing microcalcifications are identified. The axillae are unremarkable. IMPRESSION: No mammographic features suspicious for malignancy are identified. ACR BI-RADS Category 1: Negative. Result letter will be mailed to the patient. Note: At least 10% of breast cancer is not imaged by mammography. Dictated by: Dictated on workstation # [id number]
== END ==
LOC: RAD 08:59
PROVIDERS: ATTEND Family Medicine
DX: Z12.31 Encounter for screening mammogram for malignant neoplasm of breast (principal)
CPT/HCPCS: 77063; 77067